=== PATIENT | female | born 1950 | race Caucasian/White ===

== ENCOUNTER 2019-11-25 09:02 | Emergency (ER) | payer MEDICARE ==
[2019-11-25] MEDS ORDERED: KETOROLAC TROMETHAMINE 60 MG/2 ML SDV IM ONE (09:10)
--- NOTE | 2019-11-25 09:13 | ER Document Report ---
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 This happens every several months and she says that she is on gabapentin and other meds but only Toradol works for this pain. It is typical of her past episode there is no skin changes or fever. No swelling or other injuries Past Medical History - Social History Smoking Status: Unknown if Ever Smoked Family History: None Review of Systems - Review of Systems Notes: REVIEW OF SYSTEMS GEN: Denies fever, chills, weight loss ENT: Denies sore throat, nasal discharge, ear pain EYES: Denies blurry vision, eye pain, discharge CV: Denies chest pain, palpitations, edema RESP: Denies cough, shortness of breath, wheezing GI: Denies abdominal pain, nausea, vomiting, diarrhea MSK: Leg pain SKIN: Denies rash, skin lesions LYMPH: Denies swollen glands/lymph nodes NEURO: Denies headache, focal weakness or numbness, dizziness PSYCH: Denies depression, suicidal or homicidal ideation PHYSICAL EXAMINATION General: No acute distress, well-nourished Head: Atraumatic, normocephalic ENT: Mouth normal, oropharynx moist, lips normal Eyes: Conjunctiva normal, pupils equal, lids normal Neck: No JVD, supple, no guarding Resp: No resp distress, equal chest rise GI: Nondistended, no guarding Back: No midline or CVA tenderness Ext: Left lower amputation without ulceration redness or tenderness Skin: Well-perfused, no rash Neuro: Awake, alert. Face symmetric. 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 No evidence of infection DVT or arterial insufficiency Denies back pain doubt radiculopathy Safe for discharge I have discussed with the patient there likely diagnosis, aftercare plan, follow-up plans and my usual and customary return precautions. They verbalized understanding of this. 11/25/19 09:13 Discharge - Discharge Clinical Impression: Neuropathic pain, leg Qualifiers: Laterality: left Qualified Code(s): M79.2 - Neuralgia and neuritis, unspecified Condition: Good Disposition: HOME, SELF-CARE Instructions: Neuropathy ([facility]) Additional Instructions: Please establish primary care in the [place] area for your pain and other needs
[2019-11-25 09:31] VITALS: BP 152/77
== END 2019-11-25 09:36 | disposition home or self-care (01) ==
LOC: ER 09:02
DX: G57.92 Unspecified mononeuropathy of left lower limb (principal); Z89.512 Acquired absence of left leg below knee
CPT/HCPCS: 99283; 96372; J1885

== ENCOUNTER 2020-08-24 02:03 | Emergency (ER) | payer MEDICARE ==
[2020-08-24 05:37] VITALS: BP 106/94
[2020-08-24] MEDS ORDERED: KETOROLAC TROMETHAMINE 60 MG/2 ML SDV IM ONE (06:45)
--- NOTE | 2020-08-24 06:45 | ER Document Report ---
ED General - General Chief Complaint: Leg Pain Stated Complaint: LEFT LEG PAIN Time Seen by Provider: 08/24/20 06:40 Notes: 61-year-old female amputee secondary to trauma many years ago with no neuropathy and phantom pain syndrome presents with exacerbation of chronic leg pain from the thigh down to the knee electrical in nature usually responds to Toradol, has a history of chronic oxycodone use and has been seen in the ED earlier this year for the same thing. No redness drainage or swelling no fevers no injuries. TRAVEL OUTSIDE OF THE [place] IN LAST 30 DAYS: No - Related Data Allergies/Adverse Reactions: No Known Allergies Allergy (Unverified 11/25/19 09:54) Home Medications: bp medication, vit b, oxycodone, gabapentin, seroquil, vinalfa xine Past Medical History - General Information source: Patient - Social History Smoking Status: Current Every Day Smoker Frequency of alcohol use: None Drug Abuse: None Family History: None Patient has homicidal ideation: No Past Surgical History: Reports: Hx Orthopedic Surgery - left leg amputation Review of Systems - Review of Systems Notes: REVIEW OF SYSTEMS GEN: Denies fever, chills, weight loss ENT: Denies sore throat, nasal discharge, ear pain EYES: Denies blurry vision, eye pain, discharge CV: Denies chest pain, palpitations, edema RESP: Denies cough, shortness of breath, wheezing GI: Denies abdominal pain, nausea, vomiting, diarrhea MSK: Left leg pain SKIN: Denies rash, skin lesions LYMPH: Denies swollen glands/lymph nodes NEURO: Denies headache, focal weakness or numbness, dizziness PSYCH: Denies depression, suicidal or homicidal ideation PHYSICAL EXAMINATION General: No acute distress, well-nourished Head: Atraumatic, normocephalic ENT: Mouth normal, oropharynx moist, no exudates or tonsillar enlargement Eyes: Conjunctiva normal, pupils equal, lids normal Neck: No JVD, supple, no guarding CVS: Normal rate, regular rhythm, no murmurs Resp: No resp distress, equal and normal breath sounds bilaterally GI: Nondistended, soft, no tenderness to palpation, no rebound or guarding Ext: Left below the knee amputation no redness tenderness swelling well-padded within the prosthesis Back: No CVA or midline TTP Skin: No rash, warm Lymphatic: No lymphadeopathy noted Neuro: Awake, alert. Face symmetric. GCS 15. Physical Exam - Vital signs Vitals: Temp Pulse Resp BP Pulse Ox 98.3 F 89 20 114/67 99 08/24/20 02:10 08/24/20 02:10 08/24/20 02:10 08/24/20 02:10 08/24/20 02:10 Course - Re-evaluation Re-evalutation: 08/24/20 15:27 Acute exacerbation chronic pain severe neuropathy requesting Toradol IM given We will try short course of p.o. Toradol given her likely resistance to acute narcotics for chronic pain in the setting of chronic necrotic use and gabapentin use. Will follow up with her primary. I have discussed with the patient there likely diagnosis, aftercare plan, follow-up plans and my usual and customary return precautions. They verbalized understanding of this. - Vital Signs Vital signs: Temp Pulse Resp BP Pulse Ox 97.5 F 69 18 106/94 H 100 08/24/20 05:08 08/24/20 05:08 08/24/20 05:08 08/24/20 05:37 08/24/20 05:08 Discharge - Discharge Clinical Impression: Neuropathy Condition: Good Disposition: HOME, SELF-CARE Instructions: Neuropathy ([facility]) Prescriptions: Ketorolac Tromethamine [Toradol 10 mg Tablet] 10 mg PO Q6HP PRN #14 tablet PRN Reason:
== END 2020-08-24 07:07 | disposition home or self-care (01) ==
LOC: ER 02:03
DX: G62.9 Polyneuropathy, unspecified (principal); G54.6 Phantom limb syndrome with pain; M79.605 Pain in left leg; G89.29 Other chronic pain; Z89.612 Acquired absence of left leg above knee; Z79.899 Other long term (current) drug therapy; F17.200 Nicotine dependence, unspecified, uncomplicated
CPT/HCPCS: 99284; 96372; J1885